=== PATIENT | female | born 1995 | race Caucasian/White ===

== ENCOUNTER 2022-09-05 11:20 | Emergency (ER) | payer MEDICAID ==
[~2022-09-05] VITALS: Ht 165.1 cm; Wt 52.9 kg
[2022-09-05] MEDS ORDERED: LIDO700A20 TOP (15:02)
== END 2022-09-05 15:13 | disposition home or self-care (01) ==
LOC: ER 11:20
DX: M54.50 Low back pain, unspecified (principal); F17.210 Nicotine dependence, cigarettes, uncomplicated; M41.9 Scoliosis, unspecified; Z91.410 Personal history of adult physical and sexual abuse
CPT/HCPCS: 72070; 72100; 96372; 99283-25; A9270; J1885